=== PATIENT | female | born 1970 | race African-American/Black ===

== ENCOUNTER 2020-07-20 13:59 | Outpatient (CLI) | payer BC ==
[2020-07-21 00:19] LABS: SARS-CoV-2 PCR by NAA Not Detected (NotDetected)
== END 2020-07-20 14:00 | disposition home or self-care (01) ==
LOC: LABBT 13:59
PROVIDERS: ATTEND Internal Medicine
DX: Z01.812 Encounter for preprocedural laboratory examination (principal); Z12.11 Encounter for screening for malignant neoplasm of colon; Z20.822 Contact with and (suspected) exposure to COVID-19
CPT/HCPCS: U0003; U0005

== ENCOUNTER 2020-07-24 06:34 | Day surgery (SDC) | payer BC ==
[2020-07-23 11:29] VITALS: BMI 54.0
[2020-07-24] MEDS ORDERED: PROPOFOL 200 MG/20 ML VIAL ONE (08:40)
== END 2020-07-24 10:16 | disposition home or self-care (01) ==
LOC: SDC 06:34
PROVIDERS: ATTEND Internal Medicine
PROC: 0DBP8ZX Excision of Rectum, Via Natural or Artificial Opening Endoscopic, Diagnostic (ICD-10-PCS; principal; 2020-07-24)
DX: Z12.11 Encounter for screening for malignant neoplasm of colon (principal); K63.5 Polyp of colon; K64.8 Other hemorrhoids; I10 Essential (primary) hypertension; M19.90 Unspecified osteoarthritis, unspecified site; E66.01 Morbid (severe) obesity due to excess calories; Z79.82 Long term (current) use of aspirin; Z79.899 Other long term (current) drug therapy; Z91.040 Latex allergy status; Z80.0 Family history of malignant neoplasm of digestive organs
CPT/HCPCS: 88305; J2704

== ENCOUNTER 2021-04-05 16:22 | Outpatient (CLI) | payer BC | END 2021-04-05 16:23 | disposition home or self-care (01) | LOC: SCSMRI 16:22 | PROVIDERS: ATTEND Family Medicine | DX: R20.0 Anesthesia of skin (principal); M47.22 Other spondylosis with radiculopathy, cervical region; R29.898 Other symptoms and signs involving the musculoskeletal system; R59.0 Localized enlarged lymph nodes | CPT/HCPCS: 72141 ==